=== PATIENT | female | born 1970 | race Caucasian/White ===

== ENCOUNTER → 2025-10-24 | Outpatient (CLI) | payer OTHER ==
[2025-10-29 20:13] LABS: CALPROTECTIN,FECAL 6 ug/g (<=49)
== END | disposition home or self-care (01) ==
LOC: LAB SHORT 17:25 → LAB 17:25
PROVIDERS: Family Medicine
DX: R19.7 Diarrhea, unspecified (principal)
CPT/HCPCS: 83993; 87015; 87045; 87046; 87205; 87899

== ENCOUNTER → 2025-11-01 | Outpatient (CLI) | payer OTHER | LOC: LAB 07:00 → LAB SHORT 07:00 | DX: R10.9 Unspecified abdominal pain (principal) | CPT/HCPCS: 87338 ==

== ENCOUNTER → 2025-11-02 | Outpatient (CLI) | payer OTHER | END | disposition home or self-care (01) | LOC: LAB SHORT 18:20 → LAB 18:20 | DX: R30.0 Dysuria (principal) | CPT/HCPCS: 87077; 87086; 87185; 87186 ==